=== PATIENT | female | born 1950 | race American Indian/Alaskan Native ===

== ENCOUNTER 2017-01-15 09:16 | Outpatient (CLI) | payer BC, MEDICARE ==
--- NOTE | 2017-01-15 16:01 | Ultrasound Report ---
Bilateral digital diagnostic mammogram and targeted right breast ultrasound. History: Impression the patient's previous mammogram performed over a year ago on August 16, 2015 was to return for additional images. The patient did not return and is here today for followup. Findings: The breast parenchyma is heterogeneously dense. The nodular asymmetries seen in the 12:00 region of the right breast on the previous study are no longer detectable. No architectural distortion or suspicious calcifications are seen. Targeted ultrasound of the 12:00 region of the right breast demonstrates 3 subcentimeter complex lesions measuring 7-8 mm in maximum dimension, all of which have circumscribed margins and 2 of which have hyperechoic fatty hilum. These probably represent intramammary lymph nodes. No suspicious features are seen. Impression: No suspicious findings. 3 small lymph nodes are suspected at the 12:00 position.
== END 2017-01-15 09:17 | disposition home or self-care (01) ==
LOC: MAMMO 09:16
PROVIDERS: ATTEND Internal Medicine
DX: N64.89 Other specified disorders of breast (principal)
CPT/HCPCS: 76642; G0204; 77066